=== PATIENT | male | born 1985 | race Caucasian/White ===

== ENCOUNTER 2016-12-26 13:17 | Emergency (ER) | payer MEDICARE ==
[~2016-12-26] VITALS: Ht 182.9 cm; Wt 72.7 kg
[~2016-12-26 13:17] MED LIST: OLAN10TA3 PO; OLAN20TA16 PO; OLAN20TA3 PO
[2016-12-26 13:25] VITALS: BP 129/79; PULSE 50; RESP 16; O2SAT 100
--- NOTE | 2016-12-26 15:07 | ED.REPORT ---
HPI-Stroke / CVA Dec 26, 2016 ED Provider: Mikhail Villeda MD Pt is a 31 y.o. male with a hx of schizophrenia and major depression who presents to the ED c/o right-sided facial numbness onset 3 weeks ago. Pt reports associated slurred speech, numbness to lower extremities, intermittent hear palpitations, and left sided neck pain. He states that his facial numbness became worse today. Upon examination he states his facial numbness is on the right but notes decreased sensation on the left. He denies being on blood thinners currently. Nursing Notes Stated Complaint: POSS STROKE Chief Complaint: Neuro Symptoms/ Deficits Nursing Notes Reviewed: Yes Allergies: Coded Allergies: No Known Allergies (Verified Allergy, Unknown, 12/26/16) Scheduled Olanzapine (Zyprexa) 10 Mg Tablet 10 MG PO DAILY (Reported) Olanzapine (Zyprexa) 20 Mg Tablet 20 MG PO DAILY Olanzapine (Olanzapine) 20 Mg Tablet 20 MG PO DAILY General Time Seen by Provider: 15:05 Chief Complaint Numbness Left-sided Hx Obtained From: Patient Arrived By: Ambulance Time last known well 3 weeks ago Sudden in Onset?: No Symptom Duration: More than a week... (3 weeks) Progression Since Onset: Constant Location: : Neck Quality: Painful Severity: Current: Mild Recent Healthcare: No recent doctor visit, No recent hospitalization Risk Factors NIH Stroke Scale Level of Consciousness: Alert and responsive (0) Ask Month & Age: Both questions right (0) Open/Close Eyes/Hand Blueprint Tracer: Performs both tasks (0) Horizontal EO Movements: None (0) Visual Rodrigez: No visual loss (0) Facial Palsy: Normal symmetry (0) Right Arm Motor Drift (10s): No drift 10 sec (0) Left Arm Motor Drift (10s): No drift 10 sec (0) Right Leg Motor Drift (5s): No drift 5 sec (0) Left Leg Motor Drift (5s): No drift 5 sec (0) Limb Ataxia FNF/Heel-Lovelace: No ataxia (0) Sensation (Arms/Legs/Face): No sensory loss (0) Language Aphasia: No aphasia, normal (0) Dysarthria: No dysarthria, normal (0) Extinction/Inattention: No exctinct/inattent (0) NIHSS Score: 0 Time NIHSS Performed: 15:12 Date NIHSS Performed: Dec 26, 2016 Past Medical History Past Medical History Notes: [facility] Admit - 05/2014 Past Medical History schizophrenia, psychosis NOS Major Depression Reports: Depression Past Surgical History none reported Smoking History Current Every Day Smoker Social History Alcohol Use: "Social" Drug Use: Denies drug use Other Social History: Homeless Ambulatory Status Independent Review of Systems Cardiovascular: Reports: Palpitations Musculoskeletal: Reports: Neck pain Neurologic: Reports: Numbness (Right side of face and lower extremities, bilaterally), Slurred speech Complete sys rev & neg: except as marked. Physical Exam Initial Vital Signs Vital Signs (First) Date Time Temp Pulse Resp B/P Pulse Ox O2 Delivery O2 Flow Rate FiO2 12/26/16 13:25 36.8 50 16 129/79 100 Room Air Initial VS: Reviewed Abdomen / GI: No distention Extremities: Vascular intact, Neuro intact Skin: Warm, Dry, No cyanosis Psychiatric: Mood/affect normal, Behavior normal General/Constitutional: Awake, Alert, No acute distress, Well appearing, Well developed, Well hydrated, Well nourished, Not toxic appearing Head / Eyes: Atraumatic, Normocephalic, PERRL Neck: Atraumatic Respiratory / Chest: Atraumatic, Breath sounds NL, Breath sounds = bilat, No respiratory distress Cardiovascular: Heart rate NL, Regular rhythm, Heart sounds NL, Peripheral circulation NL Neurologic: Oriented X3, Speech NL, No motor deficits, No sensory deficits Interpretation & Diagnostics Lab Results Interpretation Result Diagram: 12/26/16 1545 12/26/16 1545 Test 12/26/16 15:00 12/26/16 15:19 12/26/16 15:45 Hold Urine Received (Received) Urine Opiates Screen Negative Urine Methadone Screen Negative Urine Barbiturates Screen Negative Urine Amphetamines Screen Negative Urine Benzodiazepines Screen Negative Urine Cocaine Metabolite Screen Negative Urine Cannabinoids Screen Negative White Blood Count 9.6th/mm3 (3.8-10.1) Red Blood Count 4.72mil/mm3 (4.40-5.80) Hemoglobin 14.1g/dL (13.8-17.2) Hematocrit 42.2% (41.0-50.0) Mean Corpuscular Volume 89.4fL (81-100) Mean Corpuscular Hemoglobin 29.9pg (27.0-35.0) Mean Corpuscular Hemoglobin Concent 33.4% (32.0-37.0) Red Cell Distribution Width 13.4% (12.3-15.4) Platelet Count 203bil/L (150-400) Neutrophils (%) (Auto) 53.6% (40-74) Lymphocytes (%) (Auto) 36.4% (14-46) Monocytes (%) (Auto) 8.8% (4-12) Eosinophils (%) (Auto) 0.8% (0-5) Basophils (%) (Auto) 0.3% (0-3) Sodium Level 139mEq/L (134-144) Potassium Level 4.5mEq/L (3.5-5.2) Chloride Level 101mEq/L (97-108) Carbon Dioxide Level 24mmol/L (18-29) Blood Urea Nitrogen 13mg/dL (6-20) Creatinine 0.85mg/dL (0.76-1.27) Estimat Glomerular Filtration Rate 110mL/min (>59) Glucose Level 85mg/dL (60-99) Calcium Level 8.9mg/dL (8.5-10.1) Total Bilirubin 0.4mg/dL (0.0-1.2) Aspartate Amino Transf (AST/SGOT) 21U/L (0-50) Alanine Aminotransferase (ALT/SGPT) 28U/L (0-44) Alkaline Phosphatase 50U/L (25-150) Total Protein 7.1g/dL (6.4-8.4) Albumin 4.3g/dL (3.4-5.0) Hold Blackwell Top Tube Received (Received) ECG Interpretation ECG Interpretation: Early repolarization No prior ECG for comparison. Time: 15:28 Interpreted by: ED physician Normal ECG Interpretation: Normal rate (55), Normal sinus rhythm CT Head Interpretation IMPRESSION: 1. No acute intracranial abnormality. Dictated by: Bright Rutledge M.D. on 12/26/2016 at 16:20 Approved by: Bright Rutledge M.D. on 12/26/2016 at 16:22 Re-Eval/Medical Decision Med Decision/Clinical Course 31-year-old male history of schizophrenia presenting complaining of vague complaints including right lower facial numbness 3 weeks. NIH scale is 0. His neurological exam is completely normal. On exam he reports sensation in his bilateral face is symmetric. He then reports later that his left lower face is numb. CT head normal. Labs unremarkable. Patient then reported his right lower face was numb and I his left but was significantly improved. On exam he reported they were symmetrical. Given his vague story and changing story and normal exam and believe he can be safely discharged home with return precautions. I discussed with patient and he agrees with plan to discharge home but will return if any new or worsening symptoms. Source of Hx: Old records Re-Evaluation/Progress : Time of Eval: 17:22 Re-Evaluation/Progress Note: Pt rechecked. Discussed imaging results and plan for discharge, pt understands and agrees with plan. Counseled Regarding: Diagnosis, Lab results Patient Discharge & Departure Impression: Primary Impression: Facial numbness Disposition: Home Discharge Condition All VS Reviewed: Yes Condition: Stable Additional Instructions: It does not appear that you have had a stroke. I recommend that you follow-up with your primary care provider about your symptoms. Seek care if you experience weakness, numbness, tingling, changes in speech or vision, difficulty swallowing, or any new or worsening symptoms. Referrals: René Diaz MD (PCP) Miryam Attestation Portions of this note were transcribed by Gibran Sommer. I, Dr. Villeda personally performed the history, physical exam and medical decision-making; I reviewed and confirmed the accuracy of the information in the transcribed note. Signed by: Miryam Rasmussen, 12/26/16 and 1725. copies to: René Diaz MD, Ben M MD Dec 26, 2016 15:07 GIBRAN SOMMER Dec 26, 2016 15:18
[2016-12-26 15:58] LABS: BASOPHILS % (AUTO) 0.3 % (0-3); EOSINOPHILS % (AUTO) 0.8 % (0-5); MONOCYTES % (AUTO) 8.8 % (4-12); Mean Corpuscular Hemoglobin 29.9 pg (27.0-35.0); Mean Corpuscular Volume 89.4 fL (81-100); NEUTROPHILS % (AUTO) 53.6 % (40-74); Platelet Count 203 bil/L (150-400)
--- NOTE | 2016-12-26 16:23 | DRSVH ---
PROCEDURE: CT BRAIN WITHOUT CONTRAST ([id number]) INDICATIONS: Stroke TECHNIQUE: Noncontrast 4.5 mm thick angled axial sections acquired from the foramen magnum to the vertex, with c oronal reformats. COMPARISON: None. FINDINGS: Image quality: Excellent. CSF spaces: Basal cisterns are patent. No extra-axial fluid collections. Ventricles are normal in size and shape. Brain: No intracranial hemorrhage, mass, or mass effect. Recio-white matter interface is preserved. Skull and face: Calvarium and visualized facial bones are intact, without suspicious lesions. Sinuses: Visualized sinuses and mastoids are clear. IMPRESSION: 1. No acute intracranial abnormality. Dictated by: Bright Rutledge M.D. on 12/26/2016 at 16:20 Approved by: Bright Rutledge M.D. on 12/26/2016 at 16:22
[2016-12-26 17:28] VITALS: BP 126/76; PULSE 98; O2SAT 98
== END 2016-12-26 17:29 | disposition home or self-care (01) ==
LOC: SED 13:17
DX: R20.0 Anesthesia of skin (principal); R47.81 Slurred speech; R00.2 Palpitations; M54.2 Cervicalgia; F20.9 Schizophrenia, unspecified; F17.200 Nicotine dependence, unspecified, uncomplicated; Z59.0 Homelessness
CPT/HCPCS: 36415; 70450; 80053; 81002; 85025; 93005; 99284; G0480

== ENCOUNTER 2017-03-15 15:09 | Emergency (ER) | payer MEDICARE ==
[~2017-03-15] VITALS: Ht 182.9 cm; Wt 72.7 kg
[2017-03-15 15:25] VITALS: BP 126/87; PULSE 82; RESP 18; O2SAT 98
--- NOTE | 2017-03-15 18:08 | ED.REPORT ---
HPI-Stroke / CVA March 15, 2017 ED Provider: Juancarlos Presley MD History of Present Illness: OCC I attempted to see this patient, but on several Allen's to the room, no patient was identified. Of notify the nursing staff, searches identify the patient is a little from the department. Nursing Notes Stated Complaint: RIGHT SIDE FACE AND ARM NUMBNESS X 2 MONTHS Chief Complaint: General Complaint Nursing Notes Reviewed: Yes ([place], [place] not reconciled) Allergies: Coded Allergies: No Known Allergies (Verified Allergy, Unknown, 03/15/17) Scheduled Olanzapine (Zyprexa) 10 Mg Tablet 10 MG PO DAILY (Reported) Olanzapine (Zyprexa) 20 Mg Tablet 20 MG PO DAILY Olanzapine (Olanzapine) 20 Mg Tablet 20 MG PO DAILY Past Medical History Past Medical History Notes: [facility] Admit - 05/2014 ED Visit 12/2016 for Facial numbness, CT negative Past Medical History schizophrenia, psychosis NOS Major Depression Reports: Depression Past Surgical History none reported Smoking History Current Every Day Smoker Social History Alcohol Use: "Social" Drug Use: Denies drug use Other Social History: Homeless Ambulatory Status Independent Physical Exam Initial Vital Signs Vital Signs (First) Date Time Temp Pulse Resp B/P Pulse Ox O2 Delivery O2 Flow Rate FiO2 03/15/17 15:25 37.0 82 18 126/87 98 Room Air Initial VS: Reviewed, Vital signs normal Re-Eval/Medical Decision Source of Hx: Old records Patient Discharge & Departure Referrals: René Diaz MD (PCP) Juancarlos Presley MD March 15, 2017 18:08
== END 2017-03-15 18:30 | disposition left against medical advice (07) ==
LOC: SED 16:40
DX: Z53.21 Procedure and treatment not carried out due to patient leaving prior to being seen by health care provider (principal)